=== PATIENT | female | born 1945 | race Caucasian/White ===

== ENCOUNTER 2016-06-14 13:48 | Observation (INO) ==
[2016-06-14] MEDS ORDERED: HEPARIN 5,000 UNIT/ML VIAL ONE (14:10)
[2016-06-14] MEDS ORDERED: HEPARIN/D5W 500 ML IV ONE (14:11)
[2016-06-14] MEDS ORDERED: HEPARIN/D5W 25,000 UNIT in PREMIX 1 BAG IV SCH (14:15)
--- NOTE | 2016-06-14 14:46 | Emergency Department Note ---
SOB HPI - General Chief Complaint: Shortness of Breath/Dyspnea Stated Complaint: Shortness of breath Time Seen by Provider: 06/14/16 14:44 Source: patient, other Mode of arrival: ambulatory Limitations: no limitations - History of Present Illness patient was sent over to CT from Dr. Chon Shaw's office. Apparently she's been having shortness of breath for about one week. She had a positive d-dimer yesterday, turns out today. She has multiple pulmonary emboli on CT scan, denies any chest pain at this time Has had no nausea, vomiting, denies a cough MD Complaint: shortness of breath - Related Data Home Medications Medication Instructions Recorded Confirmed bimatoprost 0.01 % eye drops 1 drp OPHTHALMIC QPM 09/01/15 06/14/16 budesonide-formoterol HFA 80 2 inh INHALATION BID 09/01/15 06/14/16 mcg-4.5 mcg/actuation aerosol inhaler cholecalciferol (vitamin D3) 1,000 1,000 unit PO QDAY 09/01/15 06/14/16 unit capsule clobetasol 0.05 % topical cream 1 applic TOPICAL BID g 09/01/15 06/14/16 fexofenadine 180 mg tablet 180 mg PO QDAY 09/01/15 06/14/16 levalbuterol HFA 45 mcg/actuation 2 puff INHALATION BID g 09/01/15 06/14/16 aerosol inhaler metronidazole 1 % topical cream 1 applic TOPICAL QDAY 09/01/15 06/14/16 omeprazole 20 mg capsule,delayed 20 mg PO QDAY cap 09/01/15 06/14/16 release simethicone PO .COMPLEX 09/01/15 09/20/15 simvastatin 20 mg tablet 20 mg PO QPM 09/01/15 06/14/16 tretinoin 0.05 % topical cream 1 applic TOPICAL .COMPLEX 09/01/15 06/14/16 verapamil ER (SR) 120 mg 120 mg PO QDAY 09/01/15 06/14/16 tablet,extended release Furosemide [Lasix] 20 mg PO DAILY 06/14/16 06/14/16 Allergies Allergy/AdvReac Type Severity Reaction Status Date / Time [id number] [From Sulfacet-R] Allergy Unknown Face and Verified 06/14/16 13:53 Throat Swelling Hydroxychloroquine Allergy Unknown Face and Verified 06/14/16 13:53 [From Plaquenil] Throat Swelling sulfacetamide Allergy Unknown Face and Verified 06/14/16 13:53 [From Sulfacet-R] Throat Swelling Review of Systems All systems ED: reviewed and negative except as stated. Past Medical History - Past Medical History Source: nursing notes reviewed Medical history: Reports: arthritis, hypertension, thyroid disease Surgical history ED: Reports: non-contributory Family history: Reports: no significant family history - Social History smoking status: Never smoker Alcohol use: Reports: None Physical Exam - General Limitations: no limitations General appearance: alert, in no apparent distress - Head Head exam: atraumatic, normocephalic - Eye Eye exam: Present: normal appearance, PERRL, EOMI. Absent: scleral icterus - ENT ENT exam: normal exam, normal oropharynx, mucous membranes moist - Neck Neck exam: Present: normal inspection, full ROM, trachea midline - Chest Chest inspection: Present: normal inspection, symmetric chest wall rise - Respiratory Respiratory exam: Present: normal lung sounds bilaterally. Absent: respiratory distress, wheezes - Cardiovascular Cardiovascular exam: Present: regular rate, normal rhythm, normal heart sounds - Abdominal Exam Abdominal exam: Present: soft, normal bowel sounds. Absent: distention, tenderness - Extremities Exam Extremities exam: Present: normal inspection, full ROM. Absent: pedal edema, calf tenderness - Back Exam Back exam: Present: normal inspection, full ROM, tenderness. Absent: CVA tenderness (R), CVA tenderness (L), vertebral tenderness - Neurological Exam Neurological exam: Present: alert, oriented X3, CN II-XII intact - Psychiatric Psychiatric exam: Present: normal affect, normal mood Course - Reevaluation(s) Reevaluation #1: patient was started on IV fluids, IV heparinand recommendations from radiology were to use TPA however, this is not our standard protocol and should not be done for mild to moderate clot burden. The. At this point, she still needs further workup, she slightly hypoxic on her blood gas and she is hyperventilating. No EKG changes, no tachycardia. She is not having any chest pain at this time. Vital Signs Temperature 97.2 F L 06/14/16 13:49 Pulse Rate 84 06/14/16 13:49 Respiratory Rate 14 06/14/16 13:49 Blood Pressure 161/99 06/14/16 13:49 Pulse Oximetry (%) 98 06/14/16 13:49 Temperature 97.2 F L 06/14/16 13:49 Pulse Rate 73 06/14/16 14:59 Respiratory Rate 14 06/14/16 13:49 Blood Pressure 142/73 06/14/16 14:59 Pulse Oximetry (%) 99 06/14/16 14:59 Shortness of Breath/Dyspnea - MDM Narrative Medical decision making narrative: impression is multiple pulmonary emboli. Plan is further telemetry monitoring, workup in the hospital continue the heparin drip, she can be started on Alquist or other. No ac Discussed with Dr. Rubi - Lab Data Result diagrams: 06/14/16 14:13 06/14/16 14:13 Lab Results 06/14/16 06/14/16 06/14/16 Range/Units 14:13 14:13 14:13 WBC 5.8 (4.5-11.0) K/mcL RBC 4.64 (4.00-5.20) M/mcL Hgb 12.9 (12.0-15.0) g/dL Hct 39.5 (36.0-48.0) % MCV 85.1 (80.0-100.0) fL MCH 27.8 (26.0-34.0) pg MCHC 32.7 (31.0-36.0) g/dL RDW 14.0 (11.5-14.5) % Plt Count 182 (140-440) K/mcL MPV 8.2 (7.4-10.4) fL Gran % 53.2 (38.0-78.0) % Lymph % (Auto) 32.1 (15.5-49.0) % Taliaferro % (Auto) 11.4 (1.0-12.0) % Eos % (Auto) 2.7 (0.0-7.0) % Baso % (Auto) 0.6 (0.0-2.0) % Gran # 3.1 (1.8-8.0) K/mcL Lymph # 1.9 (1.5-4.8) K/mcL Taliaferro # 0.7 (0.1-0.9) K/mcL Eos # 0.2 (0.0-0.7) K/mcL Baso # 0 (0.0-0.3) K/mcL PT 13.0 (11.9-14.5) sec INR 1.0 (0.9-1.1) APTT 28 (20-37) sec Sodium 138 (133-145) mmol/L Potassium 3.7 (3.3-5.1) mmol/L Chloride 101 (96-108) mmol/L Carbon Dioxide 20 L (22-30) mmol/L Anion Gap 17.0 H (8-16) BUN 8 (8-23) mg/dl Creatinine 0.7 (0.6-1.1) mg/dl GFR Calculation 88 Glucose 94 (70-105) mg/dL Calcium 8.7 (8.6-10.4) mg/dl Total Bilirubin 0.4 (0.0-1.0) mg/dL AST 16 (0-37) U/l ALT 20 (0-40) U/l Alkaline Phosphatase 103 (39-117) U/L NT-Pro-B Natriuret Pep 91.1 (0-125) pg/ml Total Protein 7.3 (5.9-8.4) gm/dL Albumin 4.0 (3.2-5.2) gm/dL Globulin 3.3 (2.2-3.7) gm/dL Albumin/Globulin Ratio 1.2 (1.0-2.3) Disposition Disposition: Xfer As Outpt/Obs ([facility]) Condition: Fair Referrals: Chon Shaw MD [Primary Care Provider] -
[2016-06-14 14:48] LABS: Basophils # (Auto) 0 K/mcL (0.0-0.3); Basophils % (Auto) 0.6 % (0.0-2.0); Eosinophils # (Auto) 0.2 K/mcL (0.0-0.7); Eosinophils % (Auto) 2.7 % (0.0-7.0); Granulocytes % (Auto) 53.2 % (38.0-78.0); Lymphocytes # (Auto) 1.9 K/mcL (1.5-4.8); Lymphocytes % (Auto) 32.1 % (15.5-49.0); Mean Cell Volume 85.1 fL (80.0-100.0); Mean Corpuscular HGB Conc 32.7 g/dL (31.0-36.0); Mean Corpuscular Hemoglobin 27.8 pg (26.0-34.0); Monocytes # (Auto) 0.7 K/mcL (0.1-0.9); Monocytes % (Auto) 11.4 % (1.0-12.0); Platelet Count 182 K/mcL (140-440); RBC 4.64 M/mcL (4.00-5.20)
[2016-06-14] MEDS ORDERED: LACTATED RINGERS 1,000 ML IV SCH (15:00)
[2016-06-14 15:13] LABS: ALT/SGPT 20 U/l (0-40); Albumin/Globulin Ratio 1.2 (1.0-2.3); Alkaline Phosphatase 103 U/L (39-117); Blood Urea Nitrogen 8 mg/dl (8-23); proBNP 91.1 pg/ml (0-125)
[2016-06-14] MEDS ORDERED: TRETINOIN TOPICAL SCH (18:32)
[2016-06-14] MEDS ORDERED: guaiFENesin/CODEINE 10 ML UDC PO PRN (18:32)
[2016-06-14] MEDS ORDERED: HYDROmorphone 2 MG/ML SYRINGE IV PRN (18:32)
[2016-06-14] MEDS ORDERED: ONDANSETRON 4 MG/2 ML VIAL IV PRN (18:32)
[2016-06-14] MEDS ORDERED: ENOXAPARIN 80 MG/0.8 ML SYRINGE SQ ONE (18:32)
[2016-06-14] MEDS ORDERED: ACETAMINOPHEN 325 MG TABLET PO PRN (18:32)
[2016-06-14] MEDS ORDERED: traZODone HCL 50 MG TABLET PO PRN (18:32)
[2016-06-14] MEDS: ENOXAPARIN 80 MG/0.8 ML SYRINGE SQ SCH (19:08)
[2016-06-14] MEDS ORDERED: BIMATOPROST OPHTHALMIC SCH (21:00)
[2016-06-14] MEDS ORDERED: LEVALBUTEROL TARTRATE INHALATION SCH (21:00)
[2016-06-14] MEDS ORDERED: CLOBETASOL PROPIONATE TOPICAL SCH (21:00)
[2016-06-14] MEDS ORDERED: SENNOSIDES/DOCUSATE SODIUM 1 TAB TABLET PO SCH (21:00)
[2016-06-14] MEDS ORDERED: SIMVASTATIN 20 MG TABLET PO SCH (21:00)
[2016-06-14] MEDS ORDERED: WARFARIN 5 MG TABLET PO SCH (21:30)
[2016-06-14] MEDS: DOCUSATE SODIUM 100 MG CAPSULE PO SCH (21:32)
[2016-06-14] MEDS: 0.9 % SODIUM CHLORIDE 10 ML SYRINGE IV SCH (21:33)
[2016-06-14] MEDS: SIMETHICONE 80 MG TAB.CHEW CHEWED PRN (21:50)
--- NOTE | 2016-06-14 22:27 | History and Physical Report ---
DATE OF ADMISSION: 06/14/2016 DATE OF ADMISSION: 06/14/2016 REASON FOR ADMISSION: Shortness of breath. HISTORY OF CHIEF COMPLAINT: The patient is a 70-year-old who was seen by primary care physician for progressive dyspnea over the last week and a half and for evaluation was sent for a CT which revealed multiple pulmonary emboli. She was subsequently referred to [facility] ER where initial workup was significant for lower extremity DVTs on ultrasound. The patient was started on a heparin drip. Hospitalist Service was consulted. The patient was significantly short of breath along with pO2 of 60 on room air with a PESI score 3 mandating hospitalization. At the time of examination, the patient is alert and oriented. She was able to provide most of the history. She denies recent trauma or surgery but does endorse to left lower extremity shingles a couple of weeks ago and has been fairly immobile since then. The patient denies taking hormonal supplements. She denies a history of blood clots. She denies weight loss or bleeding disorder. She further denies glandular swelling, night sweats, fever, chills. She is up to date on colonoscopy which was done 6 years ago without any significant finding as per patient. She does not have a history of cancer. Other than that, the patient endorses to 3 episodes of loose stools since this morning but denies dysuria, headache, or photophobia. She has mild dizziness along with increasing fatigability and exertional dyspnea limiting her functionality. REVIEW OF SYSTEMS: Ten-point review of system was performed and negative except the ones discussed above. PAST MEDICAL HISTORY: 1. Glaucoma. 2. Hypertension. 3. Hyperlipidemia. 4. History of degenerative joint disease. 5. Thyroid disorder. ALLERGIES: Known to HYDROXYCHLOROQUINE. CURRENT MEDICATIONS: Furosemide 20. Verapamil 120. for local application. Simvastatin 20. Fexofenadine 180. Bimatoprost eyedrops every evening. Budesonide formoterol inhaled b.i.d. SOCIAL HISTORY: The [place] in the [place]. She denies history of smoking or alcoholism. She is a FULL CODE STATUS. FAMILY HISTORY: None significant except for mother with clotting issues but at age 80. PHYSICAL EXAMINATION: GENERAL: The patient is alert and oriented. Denies any active distress other than shortness of breath. VITAL SIGNS: Blood pressure 140/70, respiratory rate 22, temperature 97.1, pulse 75, sats 99 percent on 3 liters of oxygen. HEENT: Pupils symmetric. Oral cavity is dry. No ear or nose discharge. Head is normocephalic and atraumatic. NECK: No lymphadenopathy. HEART: S1, S2, regular rate and rhythm. No murmur. CHEST: On auscultation, diminished breath sounds bilateral bases. ABDOMEN: Soft and nontender. LOWER EXTREMITIES: No cyanosis or clubbing. No joint swelling. No significant calf tenderness. SKIN: No suspicious lesion, normal range of motion of the joints with no joint swelling or erythema. PSYCH: Alert and cooperative. Mild anxiety from shortness of breath. NEUROLOGIC: Nonfocal, moving all four extremities. LABS AND IMAGING: White count 5.8, hemoglobin 12.9. ESR 29. INR 1. Sodium 138, potassium 3.7, creatinine 0.7, BUN 8, CRP 1.7. X-ray chest: Unremarkable. AB.44/31/68. EKG: Sinus rhythm with S1, Q3, T3 pattern along with left axis deviation. Echocardiogram: Pending. Lower extremity Doppler: Results pending. CT angiogram chest: Scattered subocclusive pulmonary emboli within both upper and lower and right middle lobe. ASSESSMENT AND PLAN: A 70-year-old admitted with acute symptomatic pulmonary embolism. 1. Acute pulmonary embolism. PESI score 3 mandating hospitalization and inpatient management. Start the patient on full dose anticoagulation on Lovenox along with initiation of Coumadin. Aggressive patient education and counseling performed on use of anticoagulation including the risk of bleeding. The anticoagulant choices were discussed with patient and currently patient agrees for Coumadin. The duration may be life-long given the unprovoked nature of deep venous thrombosis and pulmonary embolism. 2. Hypoxia secondary to above. Continue supplemental oxygen. 3. Likely early cor pulmonale as per right heart strain pattern on electrocardiogram. Echocardiogram awaited. 4. Other prior medical issues including: A. History of glaucoma. Continue bimatoprost. B. History of asthma. Continue budesonide-formoterol along with levalbuterol nebulization. C. History of hyperlipidemia. Continue statin. D. Gastroesophageal reflux disease. Continue proton pump inhibitor. E. Neuropathy. Continue gabapentin. F. Hypertension. Continue verapamil. PLAN FOR TODAY: 1. Admit as observation. 2. Full-dose anticoagulation. 3. Supplemental oxygen. 4. Preexisting medical condition management to continue on home medications. [email or web address] Job ID: [id number] Doc ID: [id number] Pelon Vilchis MD
[2016-06-15] MEDS: 0.9 % SODIUM CHLORIDE 10 ML SYRINGE IV SCH ×2 (05:30→13:59)
[2016-06-15 05:33] LABS: Mean Cell Volume 85.7 fL (80.0-100.0); Mean Corpuscular HGB Conc 32.4 g/dL (31.0-36.0); Mean Corpuscular Hemoglobin 27.8 pg (26.0-34.0); Platelet Count 176 K/mcL (140-440); Red Cell Distribution Width 13.7 % (11.5-14.5)
[2016-06-15 05:54] LABS: ALT/SGPT 17 U/l (0-40); Albumin 3.4 gm/dL (3.2-5.2); Albumin/Globulin Ratio 1.2 (1.0-2.3); Alkaline Phosphatase 94 U/L (39-117); Bilirubin,Direct < 0.2 mg/dL (0.0-0.3); Blood Urea Nitrogen 6 mg/dl (8-23); Gamma Glutamyl Transpeptidase 19 U/L (5-36); Magnesium 2.2 mg/dL (1.6-2.5); Uric Acid 4.9 mg/dL (2.5-8.0)
[2016-06-15 06:51] LABS: Eosinophils % (Manual) 4 % (0-7); Lymphocytes % 48 % (15-49); Monocytes % (Manual) 11 % (1-12); Platelet Estimate NORMAL (NORMAL); RBC Morphology NORMAL (NORMAL); Segmented Neutrophils % 37 % (38-78)
[2016-06-15] MEDS ORDERED: PANTOPRAZOLE 40 MG TABLET PO SCH (07:30)
--- NOTE | 2016-06-15 08:06 | Ultrasound Report ---
CLINICAL INFORMATION: No acute pulmonary embolus on CTA. Evaluate thrombus burden the lower extremities COMPARISON: None. FINDINGS: The entire deep venous system of the right lower extremity is widely patent and demonstrates normal venous blood flow on color/ spectral Doppler. On the left side, there is acute nonocclusive thrombus throughout the popliteal and paired calf veins. The superficial femoral, profunda femoral, femoral veins are widely patent and demonstrate normal venous blood flow IMPRESSION: 1. Nonocclusive acute thrombus throughout the left popliteal and paired trifurcation calf veins. 2. Right lower extremity venous system is widely patent Interpreted and Authenticated by: Paresh Raymundo 06/15/16
[2016-06-15] MEDS ORDERED: METRONIDAZOLE TOPICAL SCH (09:00)
[2016-06-15] MEDS ORDERED: VERAPAMIL 120 MG TAB.XL.24H PO SCH (09:00)
[2016-06-15] MEDS ORDERED: TIMOLOL 0.5% OPHTH DROPS BOTTLE 5ML OS SCH (09:00)
[2016-06-15] MEDS ORDERED: MULTIVIT,THER IRON,CA,FA & MIN 1 TABLET PO SCH (09:00)
[2016-06-15] MEDS ORDERED: FEXOFENADINE 180 MG TABLET PO SCH (09:00)
[2016-06-15] MEDS ORDERED: FUROSEMIDE 20 MG TABLET PO SCH (09:00)
[2016-06-15] MEDS ORDERED: BUDESONIDE INH SCH (09:00)
[2016-06-15] MEDS ORDERED: FORMOTEROL FUMARATE INH SCH (09:00)
[2016-06-15] MEDS ORDERED: CLOBETASOL PROPIONATE TOPICAL SCH (09:00)
[2016-06-15] MEDS ORDERED: VITAMIN D3 1,000 UNIT TABLET PO SCH (09:00)
[2016-06-15] MEDS ORDERED: OMEPRAZOLE 20 MG CAPSULE PO SCH (09:00)
[2016-06-15] MEDS ORDERED: LEVALBUTEROL TARTRATE INH SCH (09:00)
[2016-06-15] MEDS: ENOXAPARIN 80 MG/0.8 ML SYRINGE SQ SCH (09:37)
[2016-06-15] MEDS: DOCUSATE SODIUM 100 MG CAPSULE PO SCH (09:37)
--- NOTE | 2016-06-15 10:30 | Discharge Summary ---
Medical - DS: Prov Patient information: Note initiated : 06/15/16 at 10:26 am Service Date, if different from initiated Date: [] Patient: Socorro Farias 70 y/o F admitted on 06/14/16 for SOB/Acute Symptomatic Pulmonary Embolism. Chief Complaint: [] Date of admission: 06/14/16 18:30 Discharge date: 06/15/16 Primary care physician: [f_Reg Prim Care Provider] Medical - DS: Meds - Discharge Medications Prescriptions: Enoxaparin [Lovenox] 80 mg SQ BID #14 syringe Warfarin [Coumadin] 5 mg PO DAILY@1400 #30 tablet Active and Home Medications: Home Medications bimatoprost 0.01 % eye drops 1 drp OU QPM 09/01/15 [History Confirmed 06/15/16 Last Taken 06/13/16 21:00] budesonide-formoterol HFA 80 mcg-4.5 mcg/actuation aerosol inhaler 2 inh INHALATION BID 09/01/15 [History Confirmed 06/14/16 Last Taken 06/14/16 09:00] clobetasol 0.05 % topical cream 1 applic TOPICAL BID g 09/01/15 [History Confirmed 06/14/16 Last Taken 06/14/16 09:00] fexofenadine 180 mg tablet 180 mg PO QDAY 09/01/15 [History Confirmed 06/14/16 Last Taken 05/31/16] levalbuterol HFA 45 mcg/actuation aerosol inhaler 2 puff INHALATION BID g 08/31 [History Confirmed 06/14/16 Last Taken 06/14/16 09:00] metronidazole 1 % topical cream 1 applic TOPICAL QDAY 09/01/15 [History Confirmed 06/14/16 Last Taken Unknown] omeprazole 20 mg capsule,delayed release 20 mg PO QDAY cap 09/01/15 [History Confirmed 06/14/16 Last Taken 06/14/16 08:00] simvastatin 20 mg tablet 20 mg PO QPM 09/01/15 [History Confirmed 06/14/16 Last Taken 06/13/16 21:00] tretinoin 0.05 % topical cream 1 applic TOPICAL .COMPLEX 09/01/15 [History Confirmed 06/14/16 Last Taken Unknown] verapamil ER (SR) 120 mg tablet,extended release 120 mg PO QDAY 09/01/15 [ History Confirmed 06/14/16 Last Taken 06/14/16 09:00] Furosemide [Lasix] 20 mg PO DAILY PRN 06/14/16 [History Confirmed 06/14/16 Last Taken 05/31/16] Gabapentin [Neurontin] 300 mg PO BID 06/14/16 [History Confirmed 06/14/16 Last Taken 06/14/16 09:00] Timolol 0.5% Ophth Drops [Timoptic 0.5% Ophth Drops] 1 gtt OS DAILY 06/14/16 [ History Confirmed 06/14/16 Last Taken 06/14/16 09:00] Enoxaparin [Lovenox] 80 mg SQ BID #14 syringe 06/15/16 [Rx Last Taken Unknown] Warfarin [Coumadin] 5 mg PO DAILY@1400 #30 tablet 06/15/16 [Rx Last Taken Unknown] Medical - DS: Hosp Hospital course: DISCHARGE DIAGNOSIS * Multiple PE- PESI score 3. on full dose anticoagulation. Unprovoked.. Recommended terminal gauger anticoagulation. Continue outpatient management as per primary care physician. * Dyspnea and hypoxia-secondary to above. Stable * moderate pulmonary hypertension-no evidence of cor pulmonale on preliminary echo results however elevated pulmonary artery pressure 50-55. Final read pending. Primary care physician to evaluate for secondary pulmonary hypertension if persistent dyspnea non-resolving with anticoagulation. patient may eventually need a right heart catheterization. * Glaucoma on home medications * reactive airway disease on inhaled bronchodilators * Hypertension on verapamil * hyperlipidemia statin BRIEF HOSPITAL COURSE Mrs. Nestor Haro is a 70 year old female admitted with extensive pulmonary embolism/shortness of breath. Ultrasound lower extremity shows left popliteal thrombosis. patient was started on full dose anticoagulation on Lovenox. Risks and benefits of anticoagulation were discussed. Patient agreed to Coumadin for long-term anticoagulation. patient was admitted as observation overnight. This morning she is feeling a lot better. Requesting discharge. . Continue Coumadinand outpatient INR checks with primary care physician. In the interim she will continue Lovenox twice daily until INR therapeutic. patient was trained on self administration of Lovenox. Discharging with instructions as below Discharge diagnosis: . - Time Spent with Patient Total time spent providing and/or coordinating discharge services: Medical - DS: Exam - Constitutional Vitals: Vital Signs Temp Pulse Pulse Resp BP BP Pulse Ox 06/15/16 08:00 98.2 F 80 18 125/58 96 06/15/16 04:17 97.8 F 68 16 119/56 98 06/15/16 00:00 98.2 F 68 16 136/60 96 06/14/16 20:02 96 06/14/16 19:50 97 06/14/16 18:57 97.2 F L 75 14 161/99 94 06/14/16 18:32 97.1 F L 76 22 144/72 99 Intake and Output 06/14/16 06/15/16 06/15/16 21:59 05:59 13:59 Intake Total 120 / 120 Output Total 900 / 900 650 / 650 150 / 150 Balance -900 / -900 -530 / -530 -150 / -150 Intake: Oral 120 / 120 Output: Void Amount 900 / 900 650 / 650 150 / 150 Other: Weight 171 lb 9.6 oz Medical - DS: Data Labs on day of discharge: Labs from last 24 hours 06/15/16 06/15/16 06/15/16 03:38 03:38 03:38 WBC 4.8 RBC 4.40 Hgb 12.2 Hct 37.7 MCV 85.7 MCH 27.8 MCHC 32.4 RDW 13.7 Plt Count 176 MPV 9.2 Total Counted 100 Seg Neutrophils % 37 L Band Neutrophils % Not Reportable Lymphocytes % 48 Monocytes % (Manual) 11 Eosinophils % (Manual) 4 Platelet Estimate Normal RBC Morphology Normal PT 14.4 INR 1.1 Sodium 142 Potassium 3.8 Chloride 108 Carbon Dioxide 21 L Anion Gap 13.0 BUN 6 L Creatinine 0.6 GFR Calculation 92 Glucose 96 Uric Acid 4.9 Calcium 8.7 Phosphorus 4.1 Magnesium 2.2 Total Bilirubin 0.3 Direct Bilirubin < 0.2 GGT 19 AST 13 ALT 17 Alkaline Phosphatase 94 Lactate Dehydrogenase 316 H Total Protein 6.2 Albumin 3.4 Globulin 2.8 Albumin/Globulin Ratio 1.2 Triglycerides 105 Medical - DS: A/P - Patient/Caregiver Discharge Instructions Activity: increase activity as tolerated Diet: Regular Diet Additional Instructions: Follow-up PCP in 5 days continue Coumadin. Target INR 2-2.5. Lovenox until INR therapeutic I recommend primary care physician to check INR, CBC BMP as a posthospital follow-up. PCP to follow up on echocardiogram results- preliminary results reveal primary artery pressure of 55. Return to ER if worsening fever chills shortness of breath, bleeding Review risk and side effect profile of medications including Coumadin. Side effect may include mild to severe reaction including drug nteraction/ rash, life threatening bleeding even which can be prevented by close follow-up with PCP and monitoring for side effects Continue diet and activity as advised Discussed importance of medication adherence Please review medication list with patient prior to discharge Please schedule follow-up with PCP/Providers prior to discharge and provide printouts Portions of this chart may have been created with [employer] voice recognition software. Occasional wrong-word or ?sound-like? substitutions may have occurred due to the inherent limitations of voice recognition software. Please read the chart carefully and recognize, using context, where the substitutions have occurred. CC- PCP Prescriptions: Enoxaparin [Lovenox] 80 mg SQ BID #14 syringe Warfarin [Coumadin] 5 mg PO DAILY@1400 #30 tablet - Follow up Plan Follow up with: Chon Shaw MD [Primary Care Provider] - 06/22/16 4:30 pm Disposition: Home, Self-Care Prognosis: Fair Rehab Potential: Fair I certify that the patient requires SNF services: No Overall status at discharge: patient is progressing back to baseline Medical - DS: Qual - VTE Deep Vein Thrombosis/Pulmonary Embolism Present on Admission: Yes
[2016-06-15] MEDS: SIMETHICONE 80 MG TAB.CHEW CHEWED PRN (10:36)
[2016-06-15] MEDS ORDERED: WARFARIN 5 MG TABLET PO SCH (14:00)
[2016-06-15] MEDS ORDERED: BIMATOPROST OU SCH (21:00)
[2016-06-16] MEDS ORDERED: TRETINOIN TOPICAL SCH (21:00)
== END 2016-06-15 14:20 | disposition home or self-care (01) ==
LOC: ED 13:48 → ICU 13:48
PROVIDERS: ADMIT Internal Medicine; ATTEND Internal Medicine